=== PATIENT | female | born 1955 | race Caucasian/White ===

== ENCOUNTER 2018-07-07 07:32 | Day surgery (SDC) | payer OTHER ==
[~2018-07-07] VITALS: Ht 154.9 cm; Wt 57.3 kg
[~2018-07-07 07:32] MED LIST: AMIT100T2 PO; BUPR150T18 PO
[2018-07-07 08:03] VITALS: Ht 154.9 cm; Wt 57.3 kg
[2018-07-07] MEDS ORDERED: BEN20I IM (08:12)
[2018-07-07] MEDS ORDERED: SIMVASTATIN DAILY (08:12)
[2018-07-07] MEDS ORDERED: PANTOPRAZOLE DAILY (08:12)
--- NOTE | 2018-07-07 08:26 | PREAC ---
Date/Time of Note Date/Time of Note DATE: 07/07/18 TIME: 08:24 Anesthesia Eval and Record Evaluation Time Pre-Procedure Interview DATE: 07/07/18 TIME: 08:24 Age 63 Sex female NPO: 8 hrs Preoperative diagnosis abd pain and screening fo colon cancer Planned procedure egd and colonoscopy Past Medical History Past Medical History: Includes Cardio: HTN, Dyslipidemia GI: GERD Surgery & Anesthesia Issues No known issue Meds Anticoagulation: No Beta Kezia within 24 hr: No Reason Beta Kezia not given: Pt. not on B-Kezia Reported Medications [Simvastatin Daily] No Conflict Check 07/07/18 [Pantoprazole Daily] No Conflict Check 07/07/18 Dicyclomine Hcl* (Bentyl*) 10 Mg/Ml Soln, 20 MG IM, AMP 07/07/18 Amitriptyline Hcl* (Amitriptyline Hcl*) 100 Mg Tablet, 100 MG PO QHS, #30 TAB 09/01/15 Discontinued Reported Medications Bupropion Hcl* (Bupropion Hcl SR*) 150 Mg Tablet.er, 150 MG PO BID, TAB.SA 10/27/15 Meds reviewed: Yes Allergies Coded Allergies: No Known Allergy (Unverified , 07/07/18) Allergies Reviewed: Yes Labs/Studies Labs Reviewed: Reviewed by anesthesiologist test: N/A Pre-procedure Exam Airway: Adequate mouth opening, Adequate thyromental dist Mallampati: Mallampati IV Teeth: Normal Lung: Normal Heart: Normal ASA Physical Status ASA physical status: 2 Emergency: None Pre-operative Attestations Prior to commencing anesthesia and surgery, the patient was re-evaluated, there was verification of: *The patient's identity *The results of appropriate recent lab work and preoperative vital signs *The above evaluation not changing prior to induction *Anesthetic plan, risk benefits, alternative and complications discussed with patient/family; questions answered; patient/family understands, accepts and wishes to proceed. GINGER VARGAS DO Jul 07, 2018 08:26
[2018-07-07] MEDS ORDERED: PROPOFOL 20 ML ONE ×2 (08:27)
[2018-07-07] MEDS ORDERED: LIDOCAINE 2% (SDV) 5 ML INJ ONE (08:27)
[2018-07-07 08:28] VITALS: BP 131/77; PULSE 88; RESP 20
--- NOTE | 2018-07-07 09:04 | PAC ---
Date/Time of Note Date/Time of Note DATE: 07/07/18 TIME: 09:03 Post-Anesthesia Notes Post-Anesthesia Note Last documented vital signs 119/59 75 100% 18 98 Activity: WNL Respiratory function: WNL Cardiovascular function: WNL Mental status: Baseline Pain reasonably controlled: Yes Hydration appropriate: Yes Nausea/Vomiting absent: Yes GINGER VARGAS DO Jul 07, 2018 09:04
[2018-07-07 09:30] VITALS: BP 130/80; RESP 14
== END 2018-07-07 15:41 | disposition home or self-care (01) ==
LOC: GIL 07:32
PROVIDERS: ATTEND Internal Medicine Gastroenterology
DX: Z12.11 Encounter for screening for malignant neoplasm of colon (principal); D12.8 Benign neoplasm of rectum; K29.50 Unspecified chronic gastritis without bleeding; K25.3 Acute gastric ulcer without hemorrhage or perforation; K26.3 Acute duodenal ulcer without hemorrhage or perforation; I10 Essential (primary) hypertension; E78.5 Hyperlipidemia, unspecified
CPT/HCPCS: 43239; 45380; 88305; 88312; Z7610